=== PATIENT | female | born 1945 | race Caucasian/White ===

== ENCOUNTER 2016-08-12 14:55 | Emergency (ER) | payer MEDICARE ==
[2016-08-12 15:29] VITALS: BMI 24.5
[2016-08-12] MEDS ORDERED: MORPHINE 4 MG/ML INJECTION IV ONE (15:42)
[2016-08-12] MEDS ORDERED: OXYCODONE HCL 5 MG TABLET PO ONE (15:46)
--- NOTE | 2016-08-12 15:50 | EDPRACDOC ---
- General Chief Complaint: Fall Stated Complaint: FALL Time Seen by Provider: 08/12/16 15:42 Information Source: Patient, Family - History of Present Illness Onset: [employer] HPI: PT SLIPPED ON ICE SHE WAS WALKING DOWN STEPS THIS AM. ABLE TO WALK AT HOME, BUT VERY SLOW. TO ED B/C PAIN NOT IMPROVED Pain Severity: Reports: Moderate Injuries/Pain Location: Reports: upper extremity (RIGHT FOREARM), back (LOWER RIGHT). Denies: head (BUT IS SLIGHTLY CONFUSED) Reason for Fall: Reports: slipped (ON ICE) Loss of Consciousness: unsure Modifying Factors: improves with: movement Associated Symptoms (Fall): Denies: abdominal pain, chest pain, confusion, dizziness, headache, lightheadedness, muscle spasms, nausea/vomiting, neck pain , ringing in ears, seizures, shortness of breath, slurred speech, trouble walking, vision changes Allergies/Adverse Reactions: Allergies Penicillins Allergy (Verified 08/12/16 15:27) Unknown Home Medications: Ambulatory Orders Hydrocodone Bit/Acetaminophen [Hydrocodon-Acetaminophen 5-325] 1 - 2 tab PO Q6H PRN #14 tab 08/12/16 Lisinopril/Hydrochlorothiazide [Lisinopril-Hctz 10-12.5 mg Tab] 1 tab PO DAILY # 30 tab 08/12/16 ED Past Medical History - History Reviewed Yes Nurses notes reviewed and agree except as marked - Patient Medical History Cardiac History: Reports: Hypertension (STOPPED TAKING MEDS AND PCP VISITS SEVERAL YEARS AGO.) Psychological History: Denies: Depression - Social Medical History Smoking Status: Never smoker EDM Review of Systems - Review of Systems ROS Negative Except as Marked: Yes All systems reviewed and were negative except as marked - Physical Exam Constitutional: No apparent distress, Alert. negative: Distress, Decreased Consciousness Oriented to: Time, Person, Place Last recorded Vital Signs: Last Vital Signs Temp 98.2 F 08/12/16 15:29 Pulse 87 08/12/16 15:29 Resp 20 08/12/16 15:29 BP 271/136 H 08/12/16 15:29 Pulse Ox 95 08/12/16 15:29 Oxygen Pulse Oxygen Saturation 95 O2 Device Oxygen Flow Rate Fraction of Inspired Oxygen ( FIO2) - HEENT Head: Normal Eye Exam: Normal Nose: No Symptoms Reported Neck: Normal. negative: Limited ROM, Lymphadenopathy, Meningeal Signs - Respiratory/Cardiovascular Respiratory: Normal - CTA Cardiovascular: Normal - GI Auscultation: Normal Palpation: Normal Tenderness: Non tender Felix's Sign: Negative - Musculoskeletal Back: Lumbar TTP (RIGHT SIDED PARASPINAL). negative: Thoracic Step-off, Lumbar Step-off, Thoracic TTP Extremities: Normal, Other (RIGHT FOREARM HAS A CONTUSION/ECCHYMOSIS EXTENSOR SURFACE DORSAL SURFACE DISTAL RIGHT FOREARM AND WRIST HAS GOOD [id number] ELBOW HAS GOOD RANGE OF MOTION BUT SOME PAINLESS PATIENT NORMAL THE RADIAL ULNAR MEDIAN NERVE DISTRIBUTION RADIAL ULNAR ARTERIES ARE 2+. HUMERUS SHOULDER NORMAL FULL RANGE OF MOTION. THE LEFT UPPER EXTREMITY, BILATERAL LOWER EXTREMITIES ARE NONTENDER PALPATION HAVE FULL RANGE OF MOTION.) - Integumentary Skin: Normal - Neurologic Mood Description: Normal, Appropriate Thought: Coherent (SLIGHTLY CONFUSED. BASELINE UNKNOWN.) Perception: Normal - Differential Diagnosis Fracture, ICH - Results 08/12/16 16:50 08/12/16 16:50 - Diagnostic Imaging Head Image interpreted by: Radiologist Patient Name: FERCHO BERG LOC: ED : 1945 AGE: 70 Order Date:08/12/16 Date of Service:11/21 Report # [id number] Ord Physician: Anusha Acosta MD Exam # [id number] Emergency Physician: Anusha Acosta MD Exam(s): [id number] CT/CT HEAD W/O CM CLINICAL DATA: Fall. Head injury. Altered mental status EXAM: CT HEAD WITHOUT CONTRAST TECHNIQUE: Contiguous axial images were obtained from the base of the skull through the vertex without intravenous contrast. COMPARISON: 11/19/2014 FINDINGS: Mild atrophy. Mild chronic microvascular ischemic change in the white matter. Negative for acute infarct. Negative for acute hemorrhage or mass. Negative for skull fracture. Mucosal edema and bony thickening in the right maxillary sinus with small air-fluid level. IMPRESSION: Atrophy and chronic microvascular ischemia. No acute intracranial abnormality. Electronically Signed By: Juan Cho M.D. On: 08/12/2016 16:27 Electronically Signed By: Tony Cho Jr, MD Electronically Signed Date/Time: [id number] Dictate Date/Time: 08/12/16 1625 Technologist: Julissa Bentley Transcribed By: Tristen Transcribed Date/Time: 08/12/16 1627 Hip Image interpreted by: Radiologist Patient Name: FERCHO BERG LOC: ED : 1945 AGE: 70 Order Date:08/12/16 Date of Service:11/21 Report # [id number] Ord Physician: Anusha Acosta MD Exam # [id number] Emergency Physician: Anusha Acosta MD Exam(s): [id number] RAD/DG PELVIS 1-2V CLINICAL DATA: Fall, low back pain EXAM: PELVIS - 1-2 VIEW COMPARISON: CT abdomen pelvis dated 03/31/2014 FINDINGS: No fracture or dislocation is seen. Visualized bony pelvis appears intact. Bilateral hip joint spaces are preserved. Bi-iliac stents, incompletely visualized. IMPRESSION: No fracture or dislocation is seen. Electronically Signed By: Brianna Asif M.D. On: 08/12/2016 16:53 Electronically Signed By: Brianna Asif MD Electronically Signed Date/Time: Dictate Date/Time: 08/12/161651 Technologist: Kim Joshi Transcribed By: Tristen Transcribed Date/Time: 08/12/16 1653 Wrist Image interpreted by: Radiologist Patient Name: FRECHO BERG LOC: ED : 1945 AGE: 70 Order Date:08/12/16 Date of Service:11/21 Report # [id number] Ord Physician: Anusha Acosta MD Exam # [id number] Emergency Physician: Anusha Acosta MD Exam(s): [id number] RAD/DG WRIST COMPLETE 3+V-R CLINICAL DATA: Fall, wrist pain EXAM: RIGHT WRIST - COMPLETE 3+ VIEW COMPARISON: None. FINDINGS: No fracture or dislocation is seen. Mild radiocarpal degenerative changes. Visualized soft tissues are within normal limits. IMPRESSION: No fracture or dislocation is seen. Electronically Signed By: Brianna Asif M.D. On: 08/12/2016 16:53 Electronically Signed By: Brianna Asif MD Electronically Signed Date/Time: Dictate Date/Time: 08/12/161652 Technologist: Kim Joshi Transcribed By: Tristen Transcribed Date/Time: 08/12/161652 L-Spine Image interpreted by: Radiologist Patient Name: FERCHO BERG LOC: ED : 1945 AGE: 70 Order Date:08/12/16 Date of Service:11/21 Report # [id number] Ord Physician: Anusha Acosta MD Exam # [id number] Emergency Physician: Anusha Acosta MD Exam(s): [id number] RAD/DG LUMBAR SPINE COMPLETE 4+V CLINICAL DATA: Right-sided low back pain EXAM: LUMBAR SPINE - COMPLETE 4+ VIEW COMPARISON: None. FINDINGS: There is no evidence of lumbar spine fracture. Alignment is normal. Intervertebral disc spaces are maintained. Bilateral facet arthropathy at L3-4, L4-5 and L5-S1. There is an aorto bi-iliac stent graft. IMPRESSION: No acute osseous injury of the lumbar spine. Electronically Signed By: Samira Savage On: 08/12/2016 16:53 Electronically Signed By: Samira Savage MD Electronically Signed Date/Time: Dictate Date/Time: 08/12/161648 Technologist: Kim Joshi Transcribed By: Tristen Transcribed Date/Time: 08/12/161652 Forearm Image interpreted by: Radiologist Patient Name: FERCHO BERG LOC: ED : 1945 AGE: 70 Order Date:08/12/16 Date of Service:11/21 Report # [id number] Ord Physician: Anusha Acosta MD Exam # [id number] Emergency Physician: Anusha Acosta MD Exam(s): [id number] RAD/DG FOREARM 2V-R CLINICAL DATA: Patient status post fall down the stairs. Wrist pain. Initial encounter. EXAM: RIGHT FOREARM - 2 VIEW COMPARISON: None. FINDINGS: There is no evidence of fracture or other focal bone lesions. Soft tissues are unremarkable. IMPRESSION: Negative. Electronically Signed By: Kaushik Green M.D. On: 08/12/2016 16:48 Electronically Signed By: Kaushik Green MD Electronically Signed Date/Time: 651 Dictate Date/Time: 08/12/161644 Technologist: Kim Joshi Transcribed By: Tristen Transcribed Date/Time: 08/12/16 1648 - Departure Disposition: Home Condition: Stable Final Diagnosis: Accidental fall Lumbar spine strain Qualifiers: Encounter type: initial encounter Qualified Code(s): S39.012A - Strain of muscle, fascia and tendon of lower back, initial encounter Contusion of forearm, right Qualifiers: Encounter type: initial encounter Qualified Code(s): S50.11XA - Contusion of right forearm, initial encounter Hypertension Qualifiers: Hypertension type: essential hypertension Qualified Code(s): I10 - Essential ( primary) hypertension Instructions: Chronic Hypertension (ED), Back Pain (ED), Core Strengthening Exercises (GEN), RICE Therapy (ED), Thoracic (Lumbar) Strain Education/Counseling Given To: Patient, Family Member Education/Counseling Given Regarding: Diagnosis, Treatment, Prognosis Referrals: Benoit Renteria MD [Ambulatory] - Two Weeks Prescriptions: New Hydrocodone Bit/Acetaminophen [Hydrocodon-Acetaminophen 5-325] 1 - 2 tab PO Q6H PRN #14 tab PRN Reason: Pain Lisinopril/Hydrochlorothiazide [Lisinopril-Hctz 10-12.5 mg Tab] 1 tab PO DAILY #30 tab
--- NOTE | 2016-08-12 16:30 | DIRPT ---
CLINICAL DATA: Fall. Head injury. Altered mental status EXAM: CT HEAD WITHOUT CONTRAST TECHNIQUE: Contiguous axial images were obtained from the base of the skull through the vertex without intravenous contrast. COMPARISON: 11/19/2014 FINDINGS: Mild atrophy. Mild chronic microvascular ischemic change in the white matter. Negative for acute infarct. Negative for acute hemorrhage or mass. Negative for skull fracture. Mucosal edema and bony thickening in the right maxillary sinus with small air-fluid level. IMPRESSION: Atrophy and chronic microvascular ischemia. No acute intracranial abnormality. Electronically Signed By: Juan Cho M.D. On: 08/12/2016 16:27
--- NOTE | 2016-08-12 16:51 | DIRPT ---
CLINICAL DATA: Patient status post fall down the stairs. Wrist pain. Initial encounter. EXAM: RIGHT FOREARM - 2 VIEW COMPARISON: None. FINDINGS: There is no evidence of fracture or other focal bone lesions. Soft tissues are unremarkable. IMPRESSION: Negative. Electronically Signed By: Kaushik Green M.D. On: 08/12/2016 16:48
--- NOTE | 2016-08-12 16:55 | DIRPT ---
CLINICAL DATA: Fall, low back pain EXAM: PELVIS - 1-2 VIEW COMPARISON: CT abdomen pelvis dated 03/31/2014 FINDINGS: No fracture or dislocation is seen. Visualized bony pelvis appears intact. Bilateral hip joint spaces are preserved. Bi-iliac stents, incompletely visualized. IMPRESSION: No fracture or dislocation is seen. Electronically Signed By: Brianna Asif M.D. On: 08/12/2016 16:53
--- NOTE | 2016-08-12 16:56 | DIRPT ---
CLINICAL DATA: Right-sided low back pain EXAM: LUMBAR SPINE - COMPLETE 4+ VIEW COMPARISON: None. FINDINGS: There is no evidence of lumbar spine fracture. Alignment is normal. Intervertebral disc spaces are maintained. Bilateral facet arthropathy at L3-4, L4-5 and L5-S1. There is an aorto bi-iliac stent graft. IMPRESSION: No acute osseous injury of the lumbar spine. Electronically Signed By: Samira Savage On: 08/12/2016 16:53
--- NOTE | 2016-08-12 16:56 | DIRPT ---
CLINICAL DATA: Fall, wrist pain EXAM: RIGHT WRIST - COMPLETE 3+ VIEW COMPARISON: None. FINDINGS: No fracture or dislocation is seen. Mild radiocarpal degenerative changes. Visualized soft tissues are within normal limits. IMPRESSION: No fracture or dislocation is seen. Electronically Signed By: Brianna Asif M.D. On: 08/12/2016 16:53
[2016-08-12 17:06] LABS: AUTOMATED BASOPHIL 0.6 % (0-2); AUTOMATED EOSINOPHIL 1.3 % (0-5); AUTOMATED LYMPH 12.9 % (17-44); AUTOMATED NEUTROPHIL 79.2 % (45-76); MPV 10.4 fL (7.4-10.4)
[2016-08-12 17:19] LABS: BLOOD UREA NITROGEN 25 MG/DL (7-17); CALCIUM 9.5 MG/DL (8.4-10.2); CALCULATED OSMOLALITY 275 MOs/Kg (270-290); CHLORIDE 104 mEq/L (98-107); GLUCOSE 95 mg/dL (70-99); SODIUM LEVEL 141 mEq/L (137-146); TOTAL PROTEIN 7.5 G/DL (6.3-8.2)
[2016-08-12 17:27] VITALS: BP 236/114
[2016-08-12 17:30] VITALS: PULSE 74; TEMP 98.3
== END 2016-08-12 17:40 | disposition home or self-care (01) ==
LOC: ED 14:55
DX: S39.012A Strain of muscle, fascia and tendon of lower back, initial encounter (principal); S50.11XA Contusion of right forearm, initial encounter; I10 Essential (primary) hypertension; W00.1XXA Fall from stairs and steps due to ice and snow, initial encounter; Y93.9 Activity, unspecified; R41.82 Altered mental status, unspecified
CPT/HCPCS: 36415; 70450; 72110; 72170; 73090; 73110; 80053; 85025; 99284; A9270; J3490